=== PATIENT | female | born 1935 | race Caucasian/White ===

== ENCOUNTER 2019-05-09 07:33 | Outpatient (CLI) | payer MEDICARE ==
[2019-05-09] MEDS ORDERED: Iopamidol 370 76% 100 ML VIAL ONE (09:00)
--- NOTE | 2019-05-09 09:16 | CT ---
CT abdomen and pelvis with IV contrast. Oral contrast was administered. INDICATIONS: Generalized enlarged lymph nodes. 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 COMPARISON: None FINDINGS: Lung bases are clear Liver is unremarkable. There is splenomegaly. Spleen measures 13 cm. Pancreas unremarkable. Stomach and duodenum appear unremarkable. Adrenal glands appear normal. Kidneys appear unremarkable. Collecting structures and urinary bladder appear unremarkable. Small bowel loops are normal caliber and exhibit normal fold pattern. Appendix not identified. Stool throughout the colon. Diverticulosis of the sigmoid. Aorta shows atherosclerotic calcification. No aneurysm. No evidence of retroperitoneal or mesenteric adenopathy. Images through pelvis show evidence of hysterectomy. Subcutaneous tissues, abdominal wall, and muscular structures appear unremarkable. Osseous structures appear unremarkable. IMPRESSION: 1. Splenomegaly 2. No acute process
== END 2019-05-09 07:34 | disposition home or self-care (01) ==
LOC: SCSCT 07:33
PROVIDERS: ATTEND Internal Medicine Hematology & Oncology
DX: C91.40 Hairy cell leukemia not having achieved remission (principal); R59.1 Generalized enlarged lymph nodes; R16.1 Splenomegaly, not elsewhere classified
CPT/HCPCS: 74177; 82565; Q9967